=== PATIENT | male | born 1995 | race Caucasian/White ===

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

== ENCOUNTER 2017-04-17 23:11 | Emergency (ER) | payer OTHER ==
[~2017-04-17] VITALS: Ht 180.3 cm; Wt 76.2 kg
[~2017-04-17 23:11] MED LIST changes: -AUGM875T PO; -MEDR4PAK3 PO; +NAPR500 PO
[2017-04-17 23:18] VITALS: BP 123/58; PULSE 78; RESP 16; TEMP 98.6; O2SAT 98
--- NOTE | 2017-04-17 23:50 | PD ---
HPI Chief Complaint: Head Injury Time Seen by Provider: 23:42 Travel History International Travel<30 days: No Contact w/Intl Traveler<30days: No Traveled to known affect area: No History of Present Illness HPI 21-year-old male presents to the emergency department for complaint of left facial pain and swelling and left maxilla dentition numbness. Patient states that she was playing rugby on Friday and another player collided with him and the other players head hit his left face. Patient did not hit his head did not lose consciousness did not injure his neck has not had upper or lower extremity numbness tingling or weakness. Patient has noted some left-sided facial pain and swelling. Patient is concerned about a fracture. Patient denies any visual disturbance. Patient has had no change in mentation, no confusion, no visual disturbance, no nausea, no vomiting, no balance disturbance, no somnolence. Patient has chronic mild anisocoria; previous right eye surgery 2. Patient denies any other medical history. Patient rates his pain 0/10 in intensity at this time. Patient does note some discomfort however when chewing affecting the maxilla and mandible distribution on the left. No prior history of facial injury or jaw injury. [facility] Past Medical History Narrative Medical ADHD, right eye surgery, tobacco use alcohol use substance use; nursing notes reviewed ADHD: Yes (as a child) Autoimmune Disease: No Anxiety: No Depression: No Cardiovascular Problems: No Diminished Hearing: No Musculoskeletal: No Neurologic: No Psychiatric: No Respiratory: No Immunizations Current: Yes Tetanus Vaccination: Unknown Influenza Vaccination: No Past Surgical History Eye Surgery: Yes (right eye x2) Social History Alcohol Use: Yes (SOC) Tobacco Use: Yes (1/2 PPD) Substance Use: Yes (MARRIJUANA USE) Allergies-Medications (Allergen,Severity, Reaction): Coded Allergies: No Known Allergies (Unverified , 12/23/16) Reported Meds & Prescriptions Reported Meds & Active Scripts Active No Active Prescriptions or Reported Medications Review of Systems Except as stated in HPI: all other systems reviewed are Neg Physical Exam Narrative GENERAL: Well-developed well-nourished male in no acute distress no respiratory distress; GCS 15 SKIN: Warm and dry. HEAD: Atraumatic. Normocephalic. Scalp nontender no soft tissue swelling or tenderness to palpation no ecchymosis no abrasion or laceration no bony abnormality. EYES: Pupils equal and round mild anisocoria patient reports this is chronic. No scleral icterus. No injection or drainage. Extraocular muscles intact. No periorbital rim bony step-off or crepitus. ENT: No nasal bleeding or discharge. No septal hematoma. Mucous membranes pink and moist. Airway is patent. No dental malocclusion. Jaw nontender to palpation. No hemotympanum. NECK: Trachea midline. No JVD. No midline tenderness to direct palpation along the cervical spine no bony step-off no paracervical muscle spasm. CARDIOVASCULAR: Regular rate and rhythm. RESPIRATORY: No accessory muscle use. Clear to auscultation. Breath sounds equal bilaterally. GASTROINTESTINAL: Abdomen soft, non-tender, nondistended. Hepatic and splenic margins not palpable. MUSCULOSKELETAL: Extremities without clubbing, cyanosis, or edema. No obvious deformities. NEUROLOGICAL: Awake and alert. No obvious cranial nerve deficits. Motor grossly within normal limits. Five out of 5 muscle strength in the arms and legs. Normal speech. PSYCHIATRIC: Appropriate mood and affect; insight and judgment normal. Data Data Last Documented VS Vital Signs Date Time Temp Pulse Resp B/P (MAP) Pulse Ox O2 Delivery O2 Flow Rate FiO2 04/17/17 23:30 78 14 98 04/17/17 23:18 98.6 123/58 (79) Orders Orders Ct Facial Bones W/O Iv Cont (04/17/17 ) Ed Discharge Order (04/18/17 01:11) [facility] Medical Decision Making Medical Screen Exam Complete: Yes Emergency Medical Condition: Yes Medical Record Reviewed: Yes Differential Diagnosis Facial contusion facial nerve injury fracture Narrative Course CT facial bones ordered Diagnosis Primary Impression: Facial contusion Qualified Codes: S00.83XA - Contusion of other part of head, initial encounter Additional Impressions: Trigeminal (5th) nerve injury Qualified Codes: S04.32XA - Injury of trigeminal nerve, left side, initial encounter Trigeminal neuralgia of left side of face Referrals: Oral Maxillofacial Surgeon 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 Return to the emergency department for any concerns or change in condition May take acetaminophen/ibuprofen per package instructions as needed for pain Scripts No Active Prescriptions or Reported Meds Disposition: DISCHARGE HOME Condition: Stable Geraldine Chauhan MD Apr 17, 2017 23:50
--- NOTE | 2017-04-18 00:27 | RADRPT ---
EXAM DATE/TIME: 04/17/2017 23:58 [facility] COMPARISON: No previous studies available for comparison. INDICATIONS : Head injury 2 days ago. Left side facial numbness. RADIATION DOSE: 29.88 CTDIvol (mGy) MEDICAL HISTORY : None SURGICAL HISTORY : Detatched retina ENCOUNTER: Initial ACUITY: 2 days PAIN SCORE: 0/10 LOCATION: Left facial TECHNIQUE: Volumetric scanning of the facial bones was performed. Using automated exposure control and adjustme nt of the mA and/or kV according to patient size, radiation dose was kept as low as reasonably achiev able to obtain optimal diagnostic quality images. DICOM format image data is available [facility] y for review and comparison. FINDINGS: ORBITS: The orbital and infraorbital osseous structures are intact. The retroconal structures have a normal configuration. No radiopaque foreign bodies are seen. NASAL BONE: The nasal bone and maxillary spine are intact ZYGOMATIC ARCHES: Symmetric without evidence of fracture. SINUSES: The maxillary, ethmoid and frontal sinuses are intact, except mild mucosal thickening in ethmoids. N o air-fluid levels seen. NASAL CAVITY: The nasal septum is intact and midline. The lacrimal ducts are intact. SOFT TISSUES: No radiopaque foreign bodies seen. No soft-tissue swelling is seen. INTRACRANIAL: No intracranial air seen. CRIBIFORM PLATE: Grossly intact. CONCLUSION: 1. No acute findings. Mild mucosal thickening in the ethmoid air cells. Genaro Harding MD on April 18, 2017 at 0:23 Board Certified Radiologist. This report was verified electronically.
[2017-04-18 01:21] VITALS: BP 107/50; PULSE 74; RESP 16; TEMP 97.6; O2SAT 97
== END 2017-04-18 01:25 | disposition home or self-care (01) ==
LOC: PHED 23:11
DX: S00.83XA Contusion of other part of head, initial encounter (principal); S04.32XA Injury of trigeminal nerve, left side, initial encounter; F17.200 Nicotine dependence, unspecified, uncomplicated; Z86.59 Personal history of other mental and behavioral disorders; W50.0XXA Accidental hit or strike by another person, initial encounter; Y93.63 Activity, rugby
CPT/HCPCS: 70486